=== PATIENT | male | born 1985 ===

== ENCOUNTER 2019-11-19 | Emergency (ER) | payer SELFPAY ==
[~2019-11-19] VITALS: Ht 170.2 cm; Wt 84.1 kg
[2019-11-19 00:23] VITALS: BP 104/63
[2019-11-19] MEDS ORDERED: CELEBREX PO (00:30)
[2019-11-19] MEDS ORDERED: TRAZODONE PO (00:30)
[2019-11-19] MEDS ORDERED: PROZAC PO (00:30)
== END 2019-11-19 00:45 | disposition left against medical advice (07) ==
LOC: M ED → EDBD → M ED 00:45
DX: Z53.21 Procedure and treatment not carried out due to patient leaving prior to being seen by health care provider (principal)